=== PATIENT | male | born 1940 | race Caucasian/White ===

== ENCOUNTER 2017-12-16 09:20 | Outpatient (CLI) | payer MEDICARE ==
--- NOTE | 2017-12-16 09:53 | ULT ---
RENAL ULTRASOUND: INDICATIONS: Chronic renal disease. FINDINGS: The kidneys reveal no evidence of hydronephrosis or suspicious renal lesion. Symmetric sizes are doc umented with links between 10 and 11 cm, bilaterally. No significant abnormality of the imaged urina ry bladder. IMPRESSION: No overt hydronephrosis involving either kidney. POS: [facility]
== END 2017-12-16 09:21 | disposition home or self-care (01) ==
LOC: SCSULT 09:20
PROVIDERS: ATTEND Internal Medicine Nephrology
DX: N18.3 Chronic kidney disease, stage 3 (moderate) (principal)
CPT/HCPCS: 76770

== ENCOUNTER 2018-03-12 07:10 | Outpatient (CLI) | payer MEDICARE ==
--- NOTE | 2018-03-12 08:16 | CT ---
NONCONTAST CT ABDOMEN: DATE: 03/12/2018. HISTORY: Abdominal wall mass right flank region. Intraabdominal mass. COMPARISON: None available. FINDINGS: There is mild bibasilar atelectasis and/or scarring present. No discrete pulmonary nodule or mass is identified. Lack of intravenous contrast does limit sensitivity evaluation of the parenchymal organs. Calcified granulomata are seen in the spleen. Post cholecystectomy changes are noted. There is heterogeneity in the region of the superior pole right kidney worrisome for mass. This is d ifficult to accurately assess without IV contrast, and postcontrast CT abdomen is recommended. There is an area of slight increased echogenicity and heterogeneity which measures 3.7 cm. A 1.5 cm nodule is seen involving the right adrenal gland. This does not demonstrate an attenuation coefficient compatible with a lipid-rich adrenal adenoma. The liver, pancreas, and left adrenal gland demonstrate a grossly normal nonenhanced CT appearance. The appendix is partially visualized and normal I caliber. There is a small to moderate amount of re tained fecal material seen in the visualized colon. Vascular calcifications are present in the abdominal aorta and involving the iliac arteries. Degenerative changes are noted in the spine. No free fluid, fluid collection, or lymphadenopathy is seen in the abdomen. The pelvis is not imaged on this exam. IMPRESSION: 1. Heterogeneous and slight increased density mass-like area within the superior pole right kidney. This cannot be accurately assessed without IV contrast, and CT abdomen with IV contrast is recommend ed for further evaluation depending on patient's renal fuction. Renal cell carcinoma cannot be exclu ded. 2. Right adrenal nodule which cannot be characterized as a lipid-rich adenoma. CT abdomen following the adrenal mass protocol with and without IV contrast with washout imaging is recommended for furth er characterization. 3. Post cholecystectomy changes. 4. Small to moderate amount of retained fecal material in the colon suggesting constipation. CODE T POS: [facility]
== END 2018-03-12 07:11 | disposition home or self-care (01) ==
LOC: SCSCT 07:10
PROVIDERS: ATTEND Family Medicine
DX: R19.00 Intra-abdominal and pelvic swelling, mass and lump, unspecified site (principal); E27.9 Disorder of adrenal gland, unspecified; N28.89 Other specified disorders of kidney and ureter; K59.00 Constipation, unspecified; Z90.49 Acquired absence of other specified parts of digestive tract
CPT/HCPCS: 74150

== ENCOUNTER 2018-03-16 07:21 | Outpatient (CLI) | payer MEDICARE ==
--- NOTE | 2018-03-16 09:23 | CT ---
CT ABDOMEN AND PELVIS WITH AND WITHOUT CONTRAST: HISTORY: Right renal mass seen on prior CT. COMPARISON: 03/12/2018 TECHNIQUE: Multiple contiguous axial images were obtained in a CT of the abdomen and pelvis with and without IV contrast. Post contrast images were obtained in nephrographic and excretory phases. Contrast was ad ministered p.o. Coronal reformats were performed. FINDINGS: There is a solid enhancing mass at the posterior aspect of the right kidney, measuring 3.8 cm in size . The right renal vein is prominent, without an obvious filling defect. No left renal masses are se en. No calcifications are seen in either kidney. No hydronephrosis is seen. The gallbladder has been removed. The liver, left adrenal gland, and pancreas are unremarkable. Keith cifications in the spleen are from prior granulomatous disease. There is a small right adrenal nodul e, measuring 1.2 cm in greatest dimension, which is nonspecific, and too small to definitively charac terize. There are a few scattered diverticula in the colon. The prostate is enlarged. The small bowel is no rmal in appearance. The appendix is normal. Atherosclerotic calcifications are seen in the aorta. No abdominal or pelvic lymphadenopathy is seen . There is an expansile right rib lesion, measuring 3.5 cm in greatest dimension. Degenerative changes are seen in the spine, without other expansile or lytic osseous lesions. The visualized inferior th orax and abdominal wall soft tissues are unremarkable. IMPRESSION: 1. Right renal mass is suspicious for a renal cell carcinoma. 2. Expansile rib lesion is suspicious for metastatic disease to a right rib. 3. Right adrenal nodule is nonspecific. This is too small to definitely characterize and could repr esent either metastatic disease or an adrenal adenoma. 4. There is prominence of the right renal vein, without an obvious filling defect. POS: [facility]
[2018-03-16] MEDS ORDERED: Iopamidol 370 76% 100 ML VIAL ONE (10:01)
== END 2018-03-16 07:22 | disposition home or self-care (01) ==
LOC: CT 07:21
PROVIDERS: ATTEND Family Medicine
DX: N28.89 Other specified disorders of kidney and ureter (principal); E27.9 Disorder of adrenal gland, unspecified; M89.9 Disorder of bone, unspecified
CPT/HCPCS: 74178

== ENCOUNTER 2018-08-17 05:48 | Emergency (ER) | payer MEDICARE ==
[2018-08-17] MEDS ORDERED: Acetaminophen 500 MG TAB ONE (06:14)
[2018-08-17 06:46] LABS: #Eosinphils 0.3 thou/uL (0.0-0.7); #Lymphocytes 1.1 thou/uL (1.20-3.40); #Monocytes 1.1 thou/uL (0.11-0.59); #Neutrophils 9.2 thou/uL (1.40-6.50); %Basophils 0.2 % (0.0-1.0); %Eosinophils 2.4 % (0.0-10.0); %Lymphocytes 9.2 % (21.0-51.0); %Monocytes 9.1 % (0.0-10.0); %Neutrophils 79.2 % (42.0-75.0); Hemoglobin 13.3 g/dL (14.0-18.0); Mean Corpuscular HGB CONC 33.8 g/dL (32.0-36.0); Mean Corpuscular Hemoglobin 29.2 pg (27.0-31.0); Mean Corpuscular Volume 86.2 fL (78.0-98.0); Mean Platelet Volume 8.7 fL (7.4-10.4); Platelet Count 153 thou/uL (130-400); Red Blood Cell (RBC) Count 4.57 mill/uL (4.70-6.10); White Blood Cell (WBC) Count 11.6 thou/uL (4.8-10.8)
[2018-08-17 07:01] LABS: ALT (SGPT) 18 U/L (8-55); AST (SGOT) 15 U/L (5-34); Alkaline Phosphatase 77 U/L (40-150); Anion Gap 14 mmol/L (10-20); BUN (Urea Nitrogen) 15 mg/dL (8.4-25.7); Bilirubin, Total 0.6 mg/dL (0.2-1.2); Calc. Creatinine Clearance 0 mL/min (70-130); Calcium 9.5 mg/dL (7.8-10.44); Carbon Dioxide 26 mmol/L (23-31); Chloride 101 mmol/L (98-107); Estimated GFR-MDRD 43; Globulin 2.5 g/dL (2.4-3.5); Glucose 234 mg/dL (83-110); Potassium 3.9 mmol/L (3.5-5.1); Protein, Total 6.5 g/dL (5.8-8.1); Sodium 137 mmol/L (136-145)
[2018-08-17 07:20] LABS: CKMB 0.7 ng/mL (0-6.6)
[2018-08-17] MEDS ORDERED: Cefepime 2 GM VIAL ONE (07:59)
--- NOTE | 2018-08-17 08:16 | CT ---
CT BRAIN WITHOUT CONTRAST: INDICATIONS: History of altered mental status after fall. COMPARISON: MRI brain dated 12/13/2013. FINDINGS: The septum pellucidum and third ventricle are midline. No hydrocephalus is evident. No definite acu te infarct or intracranial hemorrhage is noted. The skull is intact. The mastoid air cells are ananya r. There is mild mucosal thickening in the ethmoid air cells. IMPRESSION: 1. No acute intracranial abnormality. 2. Mild paranasal sinus disease. POS: [facility]
--- NOTE | 2018-08-17 08:17 | RAD ---
CHEST ONE VIEW: INDICATIONS: History of adrenal insufficiency, fever, and cough. FINDINGS: There is mild cardiomegaly. The pulmonary vasculature is within normal limits. No consolidation or pleural effusion is evident. No definite acute osseous abnormality is evident. IMPRESSION: No definite acute cardiopulmonary abnormality. POS: [facility]
[2018-08-17 09:14] LABS: Bilirubin Negative (Negative); Blood, Urine Negative (Negative); Glucose, Urine (Dipstick) 250 mg/dL (Negative); Leukocyte Negative (Negative); Nitrite Negative (Negative); Protein, Urine (Dipstick) Negative (Neg-Trace); Urobilinogen 0.2 mg/dL (Less than 2)
[2018-08-17 09:18] LABS: Clarity Clear (Clear)
--- NOTE | 2018-08-21 12:13 | EKG ---
Test Reason : Blood Pressure : / mmHG Vent. Rate : 101 BPM Atrial Rate : 101 BPM P-R Int : 162 ms QRS Dur : 084 ms QT Int : 350 ms P-R-T Axes : 037 079 051 degrees QTc Int : 453 ms Sinus tachycardia Otherwise normal ECG Confirmed by PATRICIA DANIEL [id number]), writer editor MIRELLA NULL ([id number] on 08/21/2018 12:12:52 PM Referred By: Confirmed By:PATRICIA DANIEL
== END 2018-08-17 13:13 | disposition short-term general hospital (02) ==
LOC: ERS 05:48 → UNDOADMIN 07:16 → ERHOLD 07:16 → ERS 13:13
DX: R50.9 Fever, unspecified (principal); R00.0 Tachycardia, unspecified; E03.9 Hypothyroidism, unspecified; E11.9 Type 2 diabetes mellitus without complications; I10 Essential (primary) hypertension; F41.9 Anxiety disorder, unspecified; Z79.899 Other long term (current) drug therapy; Z79.84 Long term (current) use of oral hypoglycemic drugs; W18.30XA Fall on same level, unspecified, initial encounter
CPT/HCPCS: 36415; 70450; 71045; 80053; 81003; 82550; 82553; 83605; 84484; 85025; 87040; 87086; 87804; 93005; 94760; 96361; 96365; 96366; 96367; J0692; J3370

== ENCOUNTER 2019-07-22 10:33 | Outpatient (CLI) | payer MEDICARE ==
[~2019-07-22 10:33] MED LIST: Iopamidol 370 76% 100 ML VIAL ONE
--- NOTE | 2019-07-22 15:24 | CT ---
Exam: Chest CT with contrast Abdomen CT with contrast Pelvic CT with contrast HISTORY: Right renal cancer. Correlation: None COMPARISON: Chest abdomen and pelvic CT 03/25/2019 at [facility] [place], 03/16/2018 FINDINGS: Chest CT: Mediastinum: No mass, lymphadenopathy or hematoma. Aorta: Scattered atherosclerosis. No aneurysm, dissection or periaortic fat stranding Heart: Normal heart size. No significant pericardial fluid Trachea and central bronchi: Patent Pleural spaces: No pleural effusion. Right lung: Dependent atelectatic changes. No suspicious masses, nodules or consolidation. Left lung:Redemonstration of a spiculated nodule in the left upper lobe which appears be contiguous w ith the venous system and may represent focal thrombosis of a pulmonary vein, measuring 1.5 x 0.8 cm. Redemonstration of a bilobed nodule in the posterior aspect of the left upper lobe measuring 0.4 x 1.5 cm (previously measuring 0.5 x 1.4 cm). Redemonstration of a 0.4 cm nodule in the left lower lobe, unchanged. Redemonstration of a 0.5 x 0.6 cm solid nodule in the left lower lobe, previously me asuring 0.5 x 0.6 cm. No new or suspicious nodules, consolidation or masses in the left lung. Pneumothorax: None Abdomen CT: Gallbladder: Surgically absentPortal vein: Patent Liver: Appropriate enhancement. Spleen: Appropriate enhancement Pancreas: Appropriate enhancement Adrenal glands: Appropriate enhancement Lymphadenopathy: No gastrohepatic, retrocrural or periportal lymphadenopathy Kidneys: Irregular masslike opacity involving the upper pole of the right kidney is redemonstrated. T here does appear to be some volume loss in this region suggesting a component of treatment change. This mass measures 4.1 x 3.6 cm. There is asymmetric prominence of the right renal vein without filli ng defect. Extension of tumor into the right renal vein is suspected without associated thrombosis. Mesentery: No mass, lymphadenopathy, free air or free fluid Alimentary canal: No evidence of bowel obstruction. Ileocecal junction is normal. Normal caliber appe ndix. Scattered fecal material in a nondistended, nondilated colon. Pelvis CT: Mild enlarged prostate gland. Urinary bladder mucosal hypertrophy likely due to bladder obstruction f rom benign prostatic hypertrophy. Bladder diverticulum is suspected. Evaluation the urinary bladder mucosa is limited. No pelvic mass, lymphadenopathy, free air or free fluid Osseous structures:There is redemonstration of a osseous metastatic lesion involving the right 11th r ib. Additional osseous metastases is not appreciated. IMPRESSION: 1. Redemonstration of a right renal neoplasm. 2. Previously noted nodule in the right adrenal gland is less evident. 3. Prominence of the right renal vein persists. Possible extension of tumor is suspected without asso ciated thrombosis. 4. Redemonstration of metastases involving the right 11th rib. 5. Stable multiple left lung parenchymal nodules. Transcribed Date/Time: 07/22/2019 7:34 PM
== END 2019-07-22 10:34 | disposition home or self-care (01) ==
LOC: BICCT 10:33
PROVIDERS: ATTEND Internal Medicine Hematology & Oncology
DX: C64.1 Malignant neoplasm of right kidney, except renal pelvis (principal); R91.8 Other nonspecific abnormal finding of lung field; C79.51 Secondary malignant neoplasm of bone
CPT/HCPCS: 71260; 74177; Q9967

== ENCOUNTER 2019-09-30 12:24 | Outpatient (CLI) | payer MEDICARE ==
--- NOTE | 2019-09-30 13:22 | MMO ---
Bilateral MAMMO Bilat Diag [facility]. CLINICAL HISTORY: Patient is 79 years old and is seen for diagnostic exam and pain in the sub-areolar region of the left breast. The patient has no family history of breast cancer. The patient has a history of bone cancer in March,. VIEWS: The views performed were: bilateral craniocaudal with tomosynthesis; bilateral mediolateral oblique with tomosynthesis; and bilateral mediolateral with tomosynthesis. FILMS COMPARED: The present examination has been compared to a prior imaging study performed at [facility] on 09/30/2019. This study has been interpreted with the assistance of computer-aided detection. MAMMOGRAM FINDINGS: There are scattered fibroglandular densities. Finding 1: There are punctate calcifications seen in the sub-areolar region of the left breast. Finding 2: There is a focal asymmetry measuring 20 millimeters seen in the sub-areolar region of the left breast. There are no suspicious masses, suspicious calcifications, or new areas of architectural distortion. IMPRESSION: FINDING 1: CALCIFICATIONS IN THE LEFT BREAST ARE BENIGN. FINDING 2: FOCAL ASYMMETRY IN THE LEFT BREAST IS BENIGN. EVIDENCE FOR GYNECOMASTIA. THE RESULTS OF THIS EXAM WERE SENT TO THE PATIENT. ACR BI-RADS Category 2 - Benign finding MAMMOGRAPHY NOTE: 1. A negative mammogram report should not delay a biopsy if a dominant of clinically suspicious mass is present. 2. Approximately 10% to 15% of breast cancers are not detected by mammography. 3. Adenosis and dense breasts may obscure an underlying neoplasm. Reported by: CLAUDIA GONZALEZ MD Electonically Signed: [id number]
--- NOTE | 2019-09-30 13:59 | ULT ---
EXAM: LEFT BREAST ULTRASOUND: 09/30/19 HISTORY: Left breast pain behind the nipple. FINDINGS: there is some heterogeneous slightly hypoechoic changes in the subareolar aspect of the left breast h aving the appearance evident for typical gynecomastia which matches the findings seen on diagnostic m ammogram. No solid or cystic mass. IMPRESSION: Evidence for left sided minimal gynecomastia. If the patient develops any new palpable finding in either breast, follow-up diagnostic mammogram and breast ultrasound at that time is recommended. POS: [facility]
== END 2019-09-30 12:25 | disposition home or self-care (01) ==
LOC: BICULT 12:24
PROVIDERS: ATTEND Internal Medicine Hematology & Oncology
DX: C64.1 Malignant neoplasm of right kidney, except renal pelvis (principal); N64.59 Other signs and symptoms in breast; N62 Hypertrophy of breast; N64.89 Other specified disorders of breast; R92.1 Mammographic calcification found on diagnostic imaging of breast
CPT/HCPCS: 76642; 77066; G0279; 77063; 77067

== ENCOUNTER 2019-11-29 08:39 | Outpatient (CLI) | payer MEDICARE ==
--- NOTE | 2019-11-29 13:25 | CT ---
CT CHEST AND ABDOMEN AND PELVIS WITH CONTRAST: INDICATION: Malignant neoplasm of right kidney. COMPARISON: Comparison is made to CT chest, abdomen, and pelvis 07/22/2019. FINDINGS: CT CHEST: The nodular mass in the left upper lobe which has been previously described is again seen and appears to have enlarged in size. In the coronal plane today, the maximal dimensions are measured at 2.0 cm with previous similar dimension at 1.2 cm. AP dimension today in the axial plane is 2.4 cm with loy or measure 2.0 cm. The Bilobed nodule in the posterior aspect of the left upper lobe, previously described, appears stab le (image 39 axial). There are two 5 mm nodules seen in the posterior left upper lobe both seen on axial image 44. Both o f these appear slightly larger measuring in the 3-4 mm previously. The nodule in the more posterior left lower lobe seen on axial image 56 has also slightly increased i n size measuring approximately 9 mm AP dimension today with prime measurement of approximately 6 mm. The right lung shows tiny peripheral nodules in the right upper lobe peripherally measuring in the 3- 4 mm range which appear stable. There is now a 6 mm nodule in the more medial right upper lobe seen on axial 33 which has enlarged since the prior study. It previously measured in the 3-4 mm range. Th ere is another 4 mm nodule anterior right mid lung probably right middle lobe seen on axial 47 which was not definitely noted on the prior study. Some pleural-based stranding in the lung bases appear s table. Mediastinum is unremarkable with no evidence of adenopathy. The lytic expansile lesion seen involving the lateral right 10th rib is again noted. This was previo usly described as 11th rib. Vertebral bodies maintain height and alignment. IMPRESSION: 1. Enlarging pulmonary nodules bilaterally when compared to prior exam as detailed above. 2. Right 10th rib lesion again noted without significant change. CT ABDOMEN AND PELVIS: Liver, spleen, and pancreas unremarkable and unchanged. Stomach unremarkable. Post cholecystectomy change. The left adrenal nodule is again seen. This was not well demonstrated on the prior study but is well seen today measuring 1.6 cm. The mass density involving the superior right kidney is again noted. It does not show significant in terval change in size or appearance. Prominence of the right renal vein does not appear significantly changed. Left kidney unremarkable. No adenopathy. Bowel loops unremarkable and unchanged. Aorta shows atherosclerotic calcification without aneurysm. No free fluid. The urinary bladder shows mild bladder wall thickening. There is prostatic hypertro phy. The osseous structures are unremarkable. Lumbar vertebrae maintain height and alignment with d egenerative changes noted. IMPRESSION: 1. Stable-appearing right renal mass. 2. Left adrenal nodule. 3. Urinary bladder wall thickening with prostatic hypertrophy. POS: [facility]
== END 2019-11-29 08:40 | disposition home or self-care (01) ==
LOC: SCSCT 08:39
PROVIDERS: ATTEND Internal Medicine Hematology & Oncology
DX: C64.1 Malignant neoplasm of right kidney, except renal pelvis (principal); R91.8 Other nonspecific abnormal finding of lung field; M89.9 Disorder of bone, unspecified; N28.89 Other specified disorders of kidney and ureter; N32.81 Overactive bladder; E27.8 Other specified disorders of adrenal gland
CPT/HCPCS: 71260; 74177

== ENCOUNTER 2020-01-26 12:39 | Outpatient (CLI) | payer MEDICARE ==
[2020-01-26 15:19] LABS: Hemoglobin 13.1 g/dL (14.0-18.0); Mean Corpuscular HGB CONC 33.9 G/DL (32.0-36.0); Mean Corpuscular Hemoglobin 29.6 PG (27.0-33.0); Mean Corpuscular Volume 87.1 fl (80.0-100.0); Mean Platelet Volume 10.4 fl (7.4-10.4); Platelet Count 181 10x3/uL (130-400); RBC Distribution Width 12.7 % (11.5-14.5); Red Blood Cell (RBC) Count 4.43 10x6/uL (4.40-5.80); White Blood Cell (WBC) Count 5.8 10x3/uL (4.5-11.0)
[2020-01-26 15:23] LABS: Anion Gap 13 mmol/L (10-20); BUN (Urea Nitrogen) 14 mg/dL (8.4-25.7); Calc. Creatinine Clearance 0 mL/min (70-130); Calcium 9.3 mg/dL (7.8-10.44); Carbon Dioxide 27 mmol/L (23-31); Chloride 102 mmol/L (98-107); Glucose 332 mg/dL (83-110); Potassium 4.6 mmol/L (3.5-5.1); Sodium 137 mmol/L (136-145)
[2020-01-26 15:57] LABS: Prothrombin Time 10.8 sec (9.5-12.1)
[2020-01-27 02:04] LABS: SARS-CoV-2 MS2 Positive; SARS-CoV-2 N Gene Negative; SARS-CoV-2 S Gene Negative; SARS-CoV-2 by NAA Not Detected (NotDetected); SARS-CoV-2 orf1ab Negative
== END 2020-01-26 12:40 | disposition home or self-care (01) ==
LOC: LABBT 12:39
PROVIDERS: ATTEND Orthopaedic Surgery
DX: Z01.818 Encounter for other preprocedural examination (principal); Z20.828 Contact with and (suspected) exposure to other viral communicable diseases; C64.9 Malignant neoplasm of unspecified kidney, except renal pelvis; C79.51 Secondary malignant neoplasm of bone
CPT/HCPCS: 80048; 85027; 85610; 93005; U0003; 87635; 93010

== ENCOUNTER 2020-01-30 10:23 | Inpatient (IN) | payer MEDICARE ==
[2020-01-27 13:56] VITALS: BMI 33.3
[~2020-01-30 10:23] MED LIST changes: +Bupivacaine HCl 0.5%/Epinephrine 1:200,000/PF 30 ml Vial ONE; -Iopamidol 370 76% 100 ML VIAL ONE; +Lidocaine 1% PF 5 ML VIAL ONE; +Ondansetron PF 4 MG/2 ML Vial ONE; +PROPOFOL 200 MG/20 ML VIAL ONE; +ePHEDrine 50 MG/ML VIAL ONE
[2020-01-30] MEDS ORDERED: Clindamycin/D5W 900 mg/50 ml Premix Bag ONE (10:35)
[2020-01-30] MEDS ORDERED: Levofloxacin 500 mg/D5W 100 ml Premix Bag ONE (10:35)
[2020-01-30] MEDS ORDERED: Fentanyl 100 MCG/2 ML VIAL ONE ×3 (11:26→13:22)
[2020-01-30] MEDS ORDERED: Midazolam HCl 2 mg/2 ml Vial ONE (11:26)
[2020-01-30] MEDS ORDERED: Phenylephrine 10 MG/ML VIAL ONE (12:22)
[2020-01-30] MEDS ORDERED: Promethazine HCl 25 MG/ML VIAL IM PRN (12:35)
[2020-01-30] MEDS ORDERED: PACU-Morphine 4MG/ML VIAL SLOW IVP PRN (12:35)
[2020-01-30] MEDS ORDERED: Promethazine HCl 25 MG/ML VIAL SLOW IVP PRN (12:35)
--- NOTE | 2020-01-30 14:03 | RAD ---
Exam: XR Femur Lt 2 View STANDARD HISTORY: Left femur intramedullary nail COMPARISON: Views left femur ON 01/26/2020 FINDINGS/IMPRESSION: 4 intraoperative fluoroscopic images left femur are submitted for interpretation. Mid diaphysis of th e femur is not imaged on this exam. There are postoperative changes related to antegrade intramedullary janene with dynamic compression screw proximally and distal interlocking screw distally. This does transfix the lytic lesion involving the proximal femoral diaphysis in a subtrochanteric region. No hardware complication is seen. Fluoroscopy: Time-70 seconds Dose-19.93 mGy
[2020-01-30] MEDS ORDERED: Ondansetron ODT 4 MG TAB PO PRN (14:04)
[2020-01-30] MEDS ORDERED: Calcium Carbonate 500 MG ChewTAB PO PRN (14:04)
[2020-01-30] MEDS ORDERED: Ondansetron PF 4 MG/2 ML Vial IVP PRN (14:04)
[2020-01-30] MEDS ORDERED: HYDROcodone/Acetaminophen 5/325 mg Tablet PO PRN (14:04)
[2020-01-30] MEDS ORDERED: Senokot S 8.6-50 MG TAB PO PRN (14:04)
[2020-01-30] MEDS ORDERED: Non-Formulary Item 1 EACH (Insulin Glargine,Hum.Rec.Anlog [Lantus Solostar] 100 UNIT/ML P SC PRN (14:13)
[2020-01-30] MEDS ORDERED: ACETAMINOPHEN PO PRN (14:13)
[2020-01-30] MEDS ORDERED: OXYCODONE PO PRN (14:13)
[2020-01-30] MEDS ORDERED: Clindamycin/D5W 900 MG in Premix Bag 1 BAG IVPB SCH (18:00)
[2020-01-30] MEDS: glipiZIDE 10 MG TAB PO SCH (18:40)
[2020-01-30] MEDS ORDERED: Hydrocortisone 10 mg Tablet PO SCH (19:00)
[2020-01-30] MEDS ORDERED: Acetaminophen 325 MG TAB PO PRN (19:09)
--- NOTE | 2020-01-30 19:42 | PDOC.HHP ---
Hospitalist HPI - History of Present Illness consult for medical management History of Present Illness: This is an 79-year-old male patient with a history of diabetes mellitus, hypertension and metastatic renal cancer who was brought in today for left femur surgery with ORIF secondary to metastatic bone lesions. His oncologist is Dr. Henley Postop he was brought up to the floor and was noted to be having episodes of tachycardia and increasing fever up to 102. Hospitalist team was consulted for medical management. On coming up onto the floor his noted that he was a bit more lethargic and at times confused and corroborated that. At the time of my assessment his gives most of the story. He was fully oriented to self at the time. There was no report reported chest pain cough shortness of breath abdominal pain or dysuria. His notes that he has a history of adrenal insufficiency for which he takes oral hydrocortisone and may need increased doses during times of stress. Prior to surgery 3 days ago patient's CBC Showed WBC of 5.8, hemoglobin 13.1 and platelets 181, he had a stable CKD with creatinine 1.68. No new labs were drawn today prior to surgery. His hemoglobin A1c was 9.7. . Hospitalist ROS - Review of Systems Constitutional: reports: fever, malaise. denies: chills, sweats, weakness Respiratory: denies: cough, shortness of breath, hemoptysis, SOB with excertion Gastrointestinal: denies: nausea, vomiting, abdominal pain, diarrhea Musculoskeletal: denies: neck pain, shoulder pain Neurological: reports: confusion. denies: weakness, incoordination All other systems reviewed; all pertinent +/- noted in HPI/Subj - Medication Medications: Active Medications Generic Name Dose Route Start Last Admin Trade Name Freq PRN Reason Stop Dose Admin Glipizide 10 mg 01/30/20 17:00 01/30/20 18:40 Glipizide 10 Mg Tab PO 10 mg BID-WM HAKAN Administration Hydrocortisone 20 mg 01/30/20 19:00 01/30/20 18:41 Hydrocortisone 10 Mg Tablet PO 01/30/20 21:15 20 mg NOW HAKAN Administration Clindamycin Phosphate/Dextrose 50 mls @ 100 mls/hr 01/30/20 18:00 01/30/20 18:29 900 mg/ Device IVPB 01/31/20 00:28 50 mls Q6HR HAKAN Administration Allergies: Penicillin Hospitalist History - Past Medical History Renal/: reports: Chronic renal failure Endocrine: reports: Diabetes Other Medical History: renal cancer, rotator cuff tear and repair, hypothyroidism, hypertension - Past Surgical History Other Surgical History: rotator cuff repair, right knee replacement, galbladder, left total knee replaement, left shoulder from fractured metastatic disease - Family History Other Family History: lung cancer, colon cancer, - Social History Smoking Status: Former smoker Living Situation: With Family Activity level: uses cane/walker - Exam General Appearance: ill appearing General - other findings: Awake but oriented only to self ENT: normocephalic atraumatic, no oropharyngeal lesions, moist mucosa Neck: supple, symmetric, no JVD, no thyromegaly Heart: RRR, no murmur, no gallops, no rubs, normal peripheral pulses Respiratory: CTAB, no wheezes, no rales, no ronchi Gastrointestinal: soft, non-tender, non-distended, normal bowel sounds Extremities: no cyanosis, no edema Neurological: cranial nerve grossly intact, no focal deficits Psychiatric: oriented to person Hospitalist Results - Labs Result Diagrams: 01/30/20 21:34 Hospitalist H&P A/P - Plan Plan: This is an 79-year-old male patient with a history of diabetes mellitus, renal i nsufficiency and metastatic renal cancer who is status post ORIF of left femur on account of metastatic bone disease. He is having altered mental status with fevers concerning for postop sepsis Severe sepsis Has altered mental status, tachycardia and fevers Unclear source at the momentwe will check chest x-ray, blood cultures, lactate and UA We will start following/meropenem for now given his penicillin allergy. Give a bolus of 1 L normal saline and monitor blood pressures. Is unclear what his cardiac status iswe will reevaluate a repeat bolus as needed. We will discontinue clindamycin which she is currently on. Follow-up blood cultures De-escalate antibiotics as needed. Postop fever Possible sepsis as above Given his history of surgery and malignancy could be DVT Ultrasound legs bilaterally. CKD Follow-up on BMP Diabetes mellitus Start correctional insulin Monitor glucose Status post ORIF Appreciate surgery input. Adrenal insufficiency We will start stress dose hydrocortisone 50 mg every 6 Monitor VT prophylaxisHeparin CODE STATUS full code
--- NOTE | 2020-01-30 20:38 | RAD ---
EXAM: Single view of the chest HISTORY: Postoperative fever COMPARISON: 08/17/2018 FINDINGS: Single view of the chest shows an enlarged cardiomediastinal silhouette. There is bilatera l pulmonary vascular enlargement. Increased interstitial lung markings are present. Airspace opacity is seen in the lung bases which may represent atelectasis or infiltrates. Degenerative change s are seen in the spine. IMPRESSION: 1. Cardiomegaly with pulmonary vascular congestion 2. Bibasilar atelectasis versus infiltrates
[2020-01-30] MEDS ORDERED: Sodium Chloride 0.9% 1,000 ML IV SCH ×2 (20:45→23:45)
[2020-01-30] MEDS ORDERED: Atorvastatin Calcium 20 MG TAB PO SCH (21:00)
[2020-01-30] MEDS ORDERED: Famotidine/PF 20 mg/2ml Vial SLOW IVP SCH (21:00)
[2020-01-30] MEDS ORDERED: Simvastatin 5 MG TAB PO SCH (21:00)
[2020-01-30] MEDS ORDERED: traZODone HCl 50 MG TAB PO SCH (21:00)
[2020-01-30] MEDS ORDERED: Gabapentin 300 MG CAP PO SCH (21:00)
[2020-01-30] MEDS ORDERED: Famotidine 20 MG TAB PO SCH (21:00)
[2020-01-30] MEDS: Hydrocortisone 10 mg Tablet PO SCH (22:00)
[2020-01-30] MEDS: Hydrocortisone Sod Succ/PF 100 mg/2 ml Vial IVP SCH (22:00)
[2020-01-30 22:07] LABS: ALT (SGPT) 20 U/L (8-55); AST (SGOT) 23 U/L (5-34); Albumin 3.4 g/dL (3.4-4.8); Alkaline Phosphatase 71 U/L (40-110); Anion Gap 13 mmol/L (10-20); BUN (Urea Nitrogen) 15 mg/dL (8.4-25.7); Bilirubin, Total 0.8 mg/dL (0.2-1.2); Calc. Creatinine Clearance 45 mL/min (70-130); Carbon Dioxide 24 mmol/L (23-31); Chloride 105 mmol/L (98-107); Globulin 2.6 g/dL (2.4-3.5); Glucose 190 mg/dL (83-110); Potassium 3.7 mmol/L (3.5-5.1); Sodium 138 mmol/L (136-145)
[2020-01-30] MEDS: MEROPENEM 1 GM/50 ML 1 GM in Premix Bag 1 BAG IVPB SCH (22:18)
[2020-01-30] MEDS ORDERED: Dextrose 50% Abboject 50 ML SYRINGE SLOW IVP PRN (22:59)
[2020-01-30] MEDS ORDERED: Dextrose 5% in Water 1,000 ML IV PRN (22:59)
[2020-01-30] MEDS ORDERED: HumaLOG 300 UNITS/3 ML VIAL SC PRN (22:59)
--- NOTE | 2020-01-30 23:36 | ULT ---
EXAM: Bilateral lower extremity venous ultrasound HISTORY: Bilateral lower extremity pain and edema; postoperative fever COMPARISON: None TECHNIQUE: Multiplanar grayscale and color Doppler images were obtained in a bilateral lower extremit y venous ultrasound. Spectral analysis of the Doppler waveforms were performed. FINDINGS: The bilateral common femoral vein, profunda femoral veins, superficial femoral veins, and p opliteal veins are normal in appearance without visible thrombus. These vessels demonstrate normal compression, flow, and augmentation. The bilateral posterior tibial veins and greater saphenous veins are patent without evidence of throm bus. IMPRESSION: No evidence of DVT.
[2020-01-31] MEDS: Hydrocortisone Sod Succ/PF 100 mg/2 ml Vial IVP SCH ×3 (02:48→14:42)
[2020-01-31 05:21] LABS: #Eosinphils 0.1 thou/uL (0.0-0.7); #Lymphocytes 0.7 thou/uL (1.20-3.40); #Monocytes 0.6 thou/uL (0.11-0.59); #Neutrophils 9.3 thou/uL (1.40-6.50); %Basophils 0.2 % (0.0-1.0); %Lymphocytes 6.6 % (21.0-51.0); %Monocytes 5.7 % (0.0-10.0); %Neutrophils 86.4 % (42.0-75.0); Hemoglobin 12.3 g/dL (14.0-18.0); Mean Corpuscular HGB CONC 34.1 g/dL (32.0-36.0); Mean Corpuscular Hemoglobin 30.3 pg (27.0-31.0); Mean Corpuscular Volume 88.7 fL (78.0-98.0); Mean Platelet Volume 8.5 fL (7.4-10.4); Platelet Count 132 thou/uL (130-400); RBC Distribution Width 11.9 % (11.5-14.5); Red Blood Cell (RBC) Count 4.05 mill/uL (4.70-6.10); White Blood Cell (WBC) Count 10.8 thou/uL (4.8-10.8)
[2020-01-31] MEDS: MEROPENEM 1 GM/50 ML 1 GM in Premix Bag 1 BAG IVPB SCH ×2 (06:00→14:41)
[2020-01-31 06:51] LABS: Bacteria/HPF None Seen HPF (None Seen); Bilirubin Negative (Negative); Blood, Urine Negative (Negative); Clarity Clear (Clear); Glucose, Urine (Dipstick) 200 mg/dL (Negative); Ketone, Urine Trace mg/dL (Negative); Leukocyte Negative Leu/uL (Negative); Nitrite Negative (Negative); Protein, Urine (Dipstick) 20 mg/dL (Neg-Trace); RBC/HPF 0-3 HPF (0-3); Squamous Epithelial 0-3 HPF (0-3); Urobilinogen Normal mg/dL (Less than 2); WBC/HPF 0-3 HPF (0-3); pH, Urine 5.5 (5.0-9.0)
[2020-01-31 07:08] LABS: Sperm/HPF Rare HPF (None Seen)
[2020-01-31 07:10] LABS: Urine Culture Reflex No No
[2020-01-31] MEDS ORDERED: Hydrocortisone 10 mg Tablet PO SCH ×2 (09:00→15:00)
[2020-01-31] MEDS ORDERED: Levothyroxine Sodium 125 MCG TAB PO SCH (09:00)
[2020-01-31] MEDS ORDERED: Amlodipine 10 MG TAB PO SCH (09:00)
[2020-01-31] MEDS ORDERED: Escitalopram Oxalate 10 mg Tablet PO SCH (09:00)
[2020-01-31] MEDS: Heparin 5,000 UNITS/ML VIAL SC SCH ×2 (09:07→14:42)
[2020-01-31] MEDS: glipiZIDE 10 MG TAB PO SCH (09:09)
[2020-01-31] MEDS: Hydrocortisone 10 mg Tablet PO SCH (09:10)
[2020-01-31] MEDS: HYDROcodone/Acetaminophen 5/325 mg Tablet PO PRN ×2 (09:20→15:56)
--- NOTE | 2020-01-31 09:32 | PDOC.HOSPP ---
- Subjective Encounter Date: 01/31/20 Encounter Time: 09:30 Subjective: Mr. Finnegan was seen today in follow-up of post op. He is feeling much better. His says she feels he is back to his baseline. - Objective Vital Signs & Weight: Vital Signs (12 hours) Temp Pulse Resp BP Pulse Ox 01/31/20 07:35 98.2 F 83 16 137/57 L 97 01/31/20 04:36 98.1 F 72 18 118/65 95 01/31/20 00:07 99.4 F 89 18 131/63 95 Weight Weight 200 lb I&O: 01/30/20 01/31/20 02/01/20 06:59 06:59 06:59 Intake Total 2080 Output Total 600 Balance 1480 Result Diagrams: 01/31/20 04:59 01/30/20 21:34 Additional Labs: Accuchecks 01/31/20 01/30/20 01/30/20 05:49 20:51 16:47 POC Glucose 257 H 179 H 199 H 01/30/20 11:19 POC Glucose 145 H Hospitalist ROS - Medication Medications: Active Medications Generic Name Dose Route Start Last Admin Trade Name Freq PRN Reason Stop Dose Admin Acetaminophen 650 mg 01/30/20 19:09 01/30/20 20:00 Acetaminophen 325 Mg Tab PO 650 mg Q4H PRN Administration Headache/Fever or Pain Atorvastatin Calcium 20 mg 01/30/20 21:00 01/30/20 22:00 Atorvastatin Calcium 20 Mg Tab PO 20 mg HS HAKAN Administration Famotidine 20 mg 01/30/20 21:00 01/30/20 22:00 Famotidine 20 Mg Tab PO 20 mg 2100 HAKAN Administration Famotidine 20 mg 01/30/20 21:00 01/30/20 22:00 Famotidine/Pf 20 Mg/2ml Vial SLOW IVP Not Given 2100 HAKAN Gabapentin 300 mg 01/30/20 21:00 01/30/20 22:00 Gabapentin 300 Mg Cap PO 300 mg HS HAKAN Administration Glipizide 10 mg 01/30/20 17:00 01/30/20 18:40 Glipizide 10 Mg Tab PO 10 mg BID-WM HAKAN Administration Hydrocortisone 10 mg 01/30/20 21:00 01/30/20 22:00 Hydrocortisone 10 Mg Tablet PO 10 mg BID HAKAN Administration Hydrocortisone Sodium Succinate 50 mg 01/30/20 21:00 01/31/20 02:48 Hydrocortisone Sod Succ/Pf 100 Mg/2 Ml Vial IVP 50 mg 0300,0900,1500,2100 HAKAN Administration Meropenem 1 gm/ Device 50 mls @ 100 mls/hr 01/30/20 22:00 01/31/20 06:00 IVPB 50 mls Q8HR HAKAN Administration Insulin Human Lispro 0 units 01/30/20 22:59 01/31/20 06:08 Humalog 300 Units/3 Ml Vial SC 4 unit .MILD SLIDING SCALE PRN Administration Mild Correctional Scale Simvastatin 10 mg 01/30/20 21:00 01/30/20 22:00 Simvastatin 5 Mg Tab PO 10 mg HS HAKAN Administration Trazodone HCl 50 mg 01/30/20 21:00 01/30/20 22:00 Trazodone Hcl 50 Mg Tab PO 50 mg HS HAKAN Administration - Exam Eye: PERRL, anicteric sclera Heart: RRR, no murmur, no gallops, no rubs, normal peripheral pulses Respiratory: no wheezes, no ronchi, rales (+ soft crackles at the bases) Gastrointestinal: soft, non-tender, non-distended, normal bowel sounds, no palpable masses Extremities: no cyanosis, 1+ LE edema Hosp A/P (1) Sepsis syndrome Code(s): VUR2706 - Status: Acute (2) Adrenal insufficiency Code(s): E27.40 - UNSPECIFIED ADRENOCORTICAL INSUFFICIENCY Status: Chronic (3) Chronic kidney disease, stage 3 Code(s): N18.30 - CHRONIC KIDNEY DISEASE, STAGE 3 UNSPECIFIED Status: Chronic (4) Hypertension Code(s): I10 - ESSENTIAL (PRIMARY) HYPERTENSION Status: Chronic (5) Diabetes mellitus type 2 in nonobese Code(s): E11.9 - TYPE 2 DIABETES MELLITUS WITHOUT COMPLICATIONS Status: Acute - Plan * Sepsis Syndrome- He appears to be back to baseline. His says he will re act in this manner,due to his adrenal insufficiency, and the stress of surgery. Will continue Hydrocortisone. Follow-up of culture results. Can likely discontinue Clindamycin today, and if cultures are negative tomorrw, continue to de-escalate or even discontinue antibiotics * HTN- blood pressure is stable * DM-blood glucose is also stable- continue SSI and glypizide * Hypothyroidism- clinically euthyroid * CKD- stage 3- stable * Pathologic Hip fracture- post-op management as per Orthopedics
[2020-01-31 16:20] VITALS: BP 123/65; TEMP 97.8
--- NOTE | 2020-01-31 17:37 | OP ---
DATE OF PROCEDURE: 01/30/2020 PREOPERATIVE DIAGNOSIS: Left proximal femur metastatic lesion with impending fracture. POSTOPERATIVE DIAGNOSIS: Left proximal femur metastatic lesion with impending fracture. SURGICAL PROCEDURE: TFNA (long), left femur. ANESTHESIA: General. DIRECTOR OF RECRUITMENT AND ADMISSIONS: Griffin. IMPLANTS: Synthes TFNA measuring 12y686 mm with an 85 mm hip screw and single distal cross-lock screw. COMPLICATIONS: None. DRAINS: None. SPECIMEN: Bone x2 for pathology. OUTCOME: Satisfactory. INDICATIONS FOR PROCEDURE: The patient is an 79-year-old gentleman with a history of known renal cell cancer, who now presents with a lytic lesion in the proximal femoral metaphysis just below the level of the lesser trochanter. This femur is now becoming increasingly painful and CT scan does show a large lytic lesion in the intramedullary canal with thinning and scalloping of the cortex, placing the patient at risk for pathologic fracture. Given the pain the patient is experiencing, we are now going to proceed with prophylactic nailing and stabilization of this femur. Informed consent has been obtained. I believe all questions have been answered. DESCRIPTION OF PROCEDURE: The patient was brought to the operating room and a time-out performed followed by induction of general anesthesia. Next, the patient was positioned supine on the fracture table with the involved left lower extremity held in longitudinal traction and the right leg held in extension at the hip to allow for AP and lateral C-arm imaging of the left hip. Next, a sterile prep and drape was performed to the left lateral thigh. A small incision was made proximal to the tip of the greater trochanter. After skin was sharply incised, dissection was carried down bluntly, such that the tip of the greater trochanter could be palpated. Next, a threaded guidewire was passed from the tip of the greater trochanter down into the proximal intramedullary canal of the femur. An opening reamer was then passed over this guidewire and reamings from the proximal most portion of the femur above the level of the metastatic lesion were sent for pathology. This was then followed by passage of a ball-tipped guidewire down the shaft of the femur and then a 12 mm reamer was passed over this ball-tipped guidewire, the 12 mm reamer was taken down to the level of the lytic lesion and then backed out of the femur with these reamings also sent to Pathology for inspection. This was then followed by passage of the reamer down the canal to make sure that an 11 mm nail would pass fully. Next, the nail was passed over the ball-tipped guidewire to an appropriate depth to allow for hip screw insertion. A second incision was made distal to the first and the jig was used to drive a threaded guidewire through the lateral cortex of the femur up the femoral neck into the femoral head. Once appropriately positioned, this was followed by measurement off the guidewire and then the step reamer passed over the guidewire, further preparing the femoral neck and head to accept the hip screw. The hip screw was then inserted under fluoroscopic guidance to an appropriate depth. This was then locked in place statically. Next, a single distal cross-lock screw was placed with freehand technique from lateral to medial through the nail. At the completion of this, AP and lateral images of the distal nail and proximal nail were obtained and saved. Next, the jig was removed from the proximal nail, and the proximal incision was irrigated with bulb syringe and then closed in layers with 0 Vicryl followed by 2-0 Vicryl and sarah. The other two small incisions were closed with a simple staple closure. A Xeroform gauze and tape dressing were then applied to the lateral thigh, and the patient was transferred to recovery room in stable condition. There were no complications. He tolerated the procedure well. Job ID: [id number] [facility] MEDICAL CENTERAlexis
[2020-01-31] MEDS ORDERED: Vancomycin 1 GM in Premix Bag 1 BAG IVPB SCH (21:00)
[2020-01-31] MEDS ORDERED: Aspirin 81 mg Enteric Coated Tablet PO SCH (21:00)
[2020-02-01] MEDS ORDERED: Levothyroxine Sodium 125 MCG TAB PO SCH (06:00)
--- NOTE | 2020-02-01 11:26 | PQF ---
CLINICAL DOCUMENTATION CLARIFICATION FORM: Dear Dr. Alatorre Date: 02/01/2020 Please exercise your independent, professional judgment in responding to the clarification form. Clinical indicators are provided on the bottom of this form for your review. Please check appropriate box(s): [ ] Sepsis is a complication of current surgery [ ] Sepsis not related to current surgery, due to (please specify): [ X ] No Sepsis [ ] Other diagnosis __Adrenal crisis [ ] Unable to determine In addition, please specify: Present on Admission (POA): [ X] Yes [ ] No [ ] Unable to determine For continuity of documentation, please document condition throughout progress notes and discharge summary. Thank You. CLINICAL INDICATORS - SIGNS / SYMPTOMS / LABS / RESULTS AND LOCATION IN EMR *H&P 01/29 ([facility]): * Postop episodes of tachycardia and increasing fever up to 102. * . Noted that he was bit more lethargic and at times confused and corroborated that. * History of adrenal insufficiency for which he takes oral hydrocortisone and may need increased doses during times of stress. * Prior to surgery 3 days ago patients CBC showed WBC of 5.8 No new labs were drawn today prior to surgery. * Altered mental status with fevers concerning for postop sepsis. * Severe Sepsis *LAB ([facility]): WBC Neutrophils % Lactic Acid 01/29 1.4 01/30 10.8 86.4 *PN 01/30 ([facility]): Sepsis Syndrome- He appears to be back to baseline. His says he will react in this manner, due to his adrenal insufficiency, and the stress of surgery. *Microbiology 01/29 ([facility]): Blood Culture Preliminary ... No growth to date RISK FACTORS / RESULTS AND LOCATION IN EMR *H&P 01/29 ([facility]): * 79-year-old * Brought in today for left femur surgery with ORIF * History of adrenal insufficiency for which he takes oral hydrocortisone and may need increased doses during times of stress. TREATMENTS / RESULTS AND LOCATION IN EMR *H&P 01/29 ([facility]): Check chest x-ray, blood cultures, lactate and UA Give a bolus of 1 L NS and monitor blood pressure De-escalate antibiotics as needed. *PN 01/30 ([facility]): Will continue Hydrocortisone. Follow-up of culture results. Thank you, Beatriz CDS/[employer] Operator Signature: Beatriz Pollard RN, CDS Phone #: [phone] [email or web address] This is a permanent part of the Medical Record MTDD
== END 2020-01-31 16:36 | disposition home or self-care (01) | DRG 481 ==
LOC: SDC 10:23 → SJJU 14:18 → OBSVTOIN 14:18
PROVIDERS: ADMIT Orthopaedic Surgery; ATTEND Internal Medicine
PROC: 0QH736Z Insertion of Intramedullary Internal Fixation Device into Left Upper Femur, Percutaneous Approach (ICD-10-PCS; principal; 2020-01-30)
DX: C79.51 Secondary malignant neoplasm of bone (principal); C79.00 Secondary malignant neoplasm of unspecified kidney and renal pelvis; C64.9 Malignant neoplasm of unspecified kidney, except renal pelvis; E27.40 Unspecified adrenocortical insufficiency; M84.552A Pathological fracture in neoplastic disease, left femur, initial encounter for fracture; E27.2 Addisonian crisis; Z20.828 Contact with and (suspected) exposure to other viral communicable diseases; E11.22 Type 2 diabetes mellitus with diabetic chronic kidney disease; I12.9 Hypertensive chronic kidney disease with stage 1 through stage 4 chronic kidney disease, or unspecified chronic kidney disease; E03.9 Hypothyroidism, unspecified; N18.30 Chronic kidney disease, stage 3 unspecified; M17.0 Bilateral primary osteoarthritis of knee; Z96.651 Presence of right artificial knee joint; Z87.891 Personal history of nicotine dependence; Z88.0 Allergy status to penicillin
CPT/HCPCS: 36415; 36416; 71045; 76000; 80053; 81001; 83605; 85025; 87040; 88305; 93970; C1713; J1644; J1720; J1956; J2185; J2250; J2370; J2405; J2704; J3010; J3370; J3490; J7030

== ENCOUNTER 2020-03-22 11:36 | Observation (INO) | payer MEDICARE ==
[2020-03-22] MEDS ORDERED: Ondansetron PF 4 MG/2 ML Vial ONE (11:58)
[2020-03-22] MEDS ORDERED: Morphine 4 MG/ML VIAL ONE ×2 (11:58→16:04)
[2020-03-22 12:02] LABS: #Eosinphils 0.4 thou/uL (0.0-0.7); #Lymphocytes 1.1 thou/uL (1.20-3.40); #Monocytes 0.7 thou/uL (0.11-0.59); #Neutrophils 6.5 thou/uL (1.40-6.50); %Basophils 0.3 % (0.0-1.0); %Eosinophils 4.4 % (0.0-10.0); %Lymphocytes 12.4 % (21.0-51.0); %Monocytes 7.8 % (0.0-10.0); %Neutrophils 75.2 % (42.0-75.0); Hemoglobin 14.8 g/dL (14.0-18.0); Mean Corpuscular HGB CONC 34.8 g/dL (32.0-36.0); Mean Corpuscular Hemoglobin 30.5 pg (27.0-31.0); Mean Corpuscular Volume 87.5 fL (78.0-98.0); Mean Platelet Volume 7.8 fL (7.4-10.4); Platelet Count 129 thou/uL (130-400); RBC Distribution Width 12.5 % (11.5-14.5); Red Blood Cell (RBC) Count 4.84 mill/uL (4.70-6.10); White Blood Cell (WBC) Count 8.6 thou/uL (4.8-10.8)
--- NOTE | 2020-03-22 12:14 | ULT ---
Venous duplex sonogram left lower extremity HISTORY: Left leg pain and edema. FINDINGS: The left common femoral vein and greater saphenous junction were evaluated along with the f emoral, deep femoral, popliteal, and posterior tibial veins. Color and spectral Doppler flow, compression, and augmentation. IMPRESSION : Normal exam.
[2020-03-22 12:31] LABS: ALT (SGPT) 20 U/L (8-55); AST (SGOT) 20 U/L (5-34); Alkaline Phosphatase 90 U/L (40-110); Anion Gap 16 mmol/L (10-20); BUN (Urea Nitrogen) 15 mg/dL (8.4-25.7); Bilirubin, Total 0.6 mg/dL (0.2-1.2); CK (CPK) 37 U/L (30-200); Calc. Creatinine Clearance 0 mL/min (70-130); Calcium 9.1 mg/dL (7.8-10.44); Carbon Dioxide 24 mmol/L (23-31); Chloride 104 mmol/L (98-107); Glucose 227 mg/dL (83-110); Potassium 4.3 mmol/L (3.5-5.1); Sodium 140 mmol/L (136-145)
--- NOTE | 2020-03-22 13:52 | CT ---
CT Lower Ext Lt W Con History: Pain Comparison: Radiograph prior day. CT January 20, 2020 Findings: Intact intramedullary nail through the femur. The cortical thinning along the subtrochanter ic metastatic focus is worse. Nondisplaced anterior cortical fracture axial images 61-68 without significant displacement. Complete cortical breakthrough anteriorly with numerous small cortical perf orations. Along the posterior cortex adjacent to the gluteal tuberosity is a linear nondisplaced fracture. The left external iliac, common femoral and femoral artery are patent. No definite soft tissue mass i s appreciated. Lytic mass within the left ilium of S1. Impression: 1. Mild enlargement and progressive cortical thinning of the subtrochanteric mass left femur. 2. Nondisplaced anterior cortical fracture through the proximal lytic mass axial images 61-68. 3. Nondisplaced linear fracture without significant displacement near the gluteal tuberosity posterio rly just caudal to the mass axial images 84-89 corresponding to coronal image 72. 4. Left S1 sacral osteolytic metastatic focus measuring 1.8 cm.
[2020-03-22] MEDS ORDERED: Ketorolac Tromethamine 30 MG/ML VIAL ONE (16:04)
[2020-03-22] MEDS ORDERED: Senokot S 8.6-50 MG TAB PO PRN (16:54)
[2020-03-22] MEDS ORDERED: Morphine 2 MG/ML VIAL SLOW IVP PRN (16:59)
[2020-03-22] MEDS ORDERED: Iopamidol-370 76% 500 ML 1 ML ONE (17:57)
--- NOTE | 2020-03-22 18:19 | HP ---
This is an observation admission. CONSULTANTS CALLED: 1. Dr. Lebron Henley, Oncology. 2. Samir Moya, Orthopedics. REASON FOR ADMISSION: Pain management with severe hip pain. HISTORY OF PRESENT ILLNESS: This is a very pleasant 79-year-old male gentleman with past medical history of diabetes mellitus, benign essential hypertension, metastatic renal cancer, has been brought to the emergency room at [facility] with recent history of left femur surgery with open reduction and internal fixation secondary to metastatic bone lesions for severe pelvic pain and body aches that the patient was unable to tolerate at home with oral pain medications. The patient was further evaluated and given IV pain therapy in the ER and subsequently has been admitted to the Hospitalist Services by the emergency room physician, Dr. Guerrier. I have reviewed with the patient's , advised about pain management, long-term poor prognosis secondary to metastatic disease, which is recurrent in nature secondary to renal cell carcinoma, as discussed prior with their primary oncologist, who agrees to the same. He is being admitted to the Hospitalist Services for IV pain management, IV hydration. Extensive discussion in regard to the patient's prognosis was made with the , who agrees to the current management plan of pain management and palliative hospice care therapy after further review. No other current complaints of chest pain, fever, rigors, chills, nausea, vomiting, diaphoresis, blurring of vision, tingling, numbness, burning micturition, constipation, claudication, anxiety, depression, hematuria, hematochezia, cough, expectoration, syncope, seizures, PND, or orthopnea at this point of time. PAST MEDICAL HISTORY: 1. Benign essential hypertension. 2. Diabetes mellitus, type 2. 3. Metastatic renal cell carcinoma with left femur metastasis and pelvic metastasis, status post recent open reduction and internal fixation. SOCIAL HISTORY: The patient denies tobacco, alcohol, or recreational drug abuse. FAMILY HISTORY: Strong family history of hypertension. ALLERGIES: PENICILLIN. MEDICATIONS: At home; 1. Glipizide 10 mg b.i.d. 2. Hydrocortisone 15 mg in a.m. and 10 mg in p.m. PAST SURGICAL HISTORY: Rotator cuff repair, right knee replacement, gallbladder surgery, left total knee replacement, recent open reduction and internal fixation for fractured metastatic disease. SOCIAL HISTORY: The patient denies tobacco, alcohol, or recreational drug abuse. REVIEW OF SYSTEMS: Except as documented, all systems reviewed and negative. PHYSICAL EXAMINATION: GENERAL: This is an 79-year-old male gentleman, who is unable to walk and in severe pain which is 10/10 in severity when present, requiring IV pain medications, not resolving with oral home medications. VITAL SIGNS: Blood pressure of 150/68 mmHg, respiratory rate of 18 per minute, saturation of on 2 L of oxygen. Has an airway, which is clear. HEENT: Atraumatic and normocephalic. NECK: Supple. No bruit. No lymphadenopathy. No JVD. CVS: S1 and S2. No abnormal rhythms or murmurs. CHEST: Bilateral air entry present. No rhonchi. No wheeze. ABDOMEN: Soft, nontender. Bowel sounds are present. No organomegaly. EXTREMITIES: No cyanosis, no edema. No pallor. No icterus. NEUROLOGIC: The patient is alert, oriented, has significant motor deficits secondary to pain. No sensory deficits for now. HEME: No ecchymosis or petechiae. PSYCH: No depression. Normal mood. DIAGNOSTICS: WBCs 8.6, hemoglobin 14.8, hematocrit 42.4, platelets of 129. Sodium 140, potassium 4.3, chloride 104, carbon dioxide 24, BUN 15, creatinine 1.37, calcium 9.1, AST 20, ALT 20, albumin 4.0. ASSESSMENT: 1. Severe pain, not responding to oral pain medications at home with CT evidence showing mild enlargement and progressive cortical thickening with subtrochanteric mass left femur along with nondisplaced anterior cortical fracture, Nondisplaced linear fracture without significant displacement near the gluteal tuberosity posteriorly, just caudal to the mass axial image, left S1 sacral osteolytic metastatic focus lesion of 1.8 cm. 2. Renal cell carcinoma with significant metastasis and poor prognosis as reported by the patient's primary oncologist, Dr. Henley. 3. Benign essential hypertension. 4. Diabetes mellitus, type 2. 5. Hyperlipidemia. 6. Acquired hypothyroidism. PLAN: Discussed in detail of the diagnoses, treatment plan, and followup with the patient as well as the patient's . Advised the patient's in regard to transitioning to palliative care hospice at some point of time after eventual discussion with Orthopedics as well as Oncology Services. At this point in time, the patient has advanced directives which include a DNR and DNI. Advised the patient's prognosis is very poor. DVT prophylaxis with mechanical SCDs and GI prophylaxis with Pepcid. The patient as well as the patient's had been extensively educated in regard to current prognosis and long-term outcome. Advance directives are DNR and DNI. The patient's MPOA is his . Discharge planning will depend on transitioning the patient to either inpatient hospice or home hospice in the next 24 hours with Case Management. Job ID: [id number] MTDD
[2020-03-22] MEDS: Hydrocortisone Sod Succ/PF 100 mg/2 ml Vial IVP SCH (19:59)
[2020-03-22] MEDS ORDERED: HumaLOG 300 UNITS/3 ML VIAL SC PRN ×2 (20:01)
[2020-03-22] MEDS ORDERED: Dextrose 5% in Water 1,000 ML IV PRN (20:01)
[2020-03-22] MEDS ORDERED: Dextrose 50% Abboject 50 ML SYRINGE SLOW IVP PRN (20:01)
[2020-03-22] MEDS ORDERED: Atorvastatin Calcium 20 MG TAB PO SCH (21:00)
[2020-03-22 22:13] VITALS: BMI 30.4
[2020-03-23] MEDS: Hydrocortisone Sod Succ/PF 100 mg/2 ml Vial IVP SCH ×2 (00:59→05:44)
[2020-03-23] MEDS ORDERED: hydrALAZINE 20 MG/ML VIAL SLOW IVP SCH (03:15)
[2020-03-23] MEDS ORDERED: Levothyroxine Sodium 125 MCG TAB PO SCH (06:00)
[2020-03-23] MEDS ORDERED: HYDROcodone/Acetaminophen 5/325 mg Tablet PO PRN (07:55)
[2020-03-23] MEDS ORDERED: GUAIFENESIN SF SOLN 200 MG/10 ML UDCUP PO PRN (07:55)
[2020-03-23] MEDS ORDERED: Calcium Carbonate 500 MG ChewTAB PO PRN (07:55)
[2020-03-23] MEDS ORDERED: Ondansetron PF 4 MG/2 ML Vial IVP PRN (07:55)
[2020-03-23] MEDS ORDERED: Zolpidem Tartrate 5 MG TAB PO PRN (07:55)
[2020-03-23] MEDS ORDERED: hydrALAZINE 20 MG/ML VIAL SLOW IVP PRN (07:55)
[2020-03-23] MEDS ORDERED: Sodium Chloride 0.65% Nasal 44 ML BOT EA NARE PRN (07:55)
[2020-03-23] MEDS ORDERED: diphenhydrAMINE 50 MG/ML VIAL IVP PRN (07:55)
[2020-03-23] MEDS ORDERED: Benzonatate 100 MG CAP PO PRN (07:55)
[2020-03-23] MEDS ORDERED: Bisacodyl 5 MG TAB PO PRN (07:55)
[2020-03-23] MEDS ORDERED: Loperamide HCl 2 MG CAP PO PRN (07:55)
[2020-03-23] MEDS ORDERED: Ondansetron ODT 4 MG TAB PO PRN (07:55)
[2020-03-23] MEDS ORDERED: Bisacodyl 10 MG SUPP PR PRN (07:55)
[2020-03-23] MEDS ORDERED: Loratadine 10 MG TAB PO PRN (07:55)
[2020-03-23] MEDS ORDERED: Cepastat Lozenges 1 LOZ PO PRN (07:55)
[2020-03-23] MEDS ORDERED: traZODone HCl 50 MG TAB PO PRN (07:56)
[2020-03-23] MEDS ORDERED: Non-Formulary Item 1 EACH (Oxycodone Hcl/Acetaminophen [Percocet] 10 MG/325 MG Tablet) PO PRN (07:56)
[2020-03-23] MEDS ORDERED: Morphine 2 MG/ML VIAL SLOW IVP PRN (07:59)
[2020-03-23] MEDS ORDERED: oxyCODONE/Acetaminophen 5 mg/325 mg Tablet PO PRN (08:19)
[2020-03-23] MEDS ORDERED: HYDROCORTISONE 5 MG PO SCH ×2 (09:00→21:00)
[2020-03-23] MEDS ORDERED: Amlodipine 10 MG TAB PO SCH (09:00)
[2020-03-23] MEDS ORDERED: Hydrocortisone 10 mg Tablet PO SCH ×2 (09:00→21:00)
[2020-03-23] MEDS ORDERED: Insulin Glargine 17 UNITS in Pre-Filled Syringe 1 EACH SC SCH (09:00)
[2020-03-23] MEDS ORDERED: Enoxaparin Sodium 40 MG/0.4 ML SYRINGE SC SCH (09:00)
--- NOTE | 2020-03-23 09:17 | MRI ---
MRI Pelvis WO Con History: Pain. Evaluate for metastasis Comparison: Lumbar spine MRI same day Findings: Intraosseous hemangioma of the L5 vertebral body. Metastatic focus within the left S1 sacra l ala measures 2 cm. Metastatic focus within the left iliac wing seen on the coronal images measures 2.2 cm likely with a component of cortical breakthrough. Poorly delineated left subtrochanteric mass as well as the mentioned fractures which are nondisplaced . The obturator rings are without metastatic disease. Impression: 1. Osteolytic masses within the left sacral ala at S1 as well as within the left ilium posteriorly se en on the coronal images as described. 2. Intraosseous hemangioma of L5.
--- NOTE | 2020-03-23 10:00 | MRI ---
MRI LUMBAR SPINE WITHOUT CONTRAST: INDICATION: Low back pain. Left hip pain. FINDINGS: The lumbar vertebrae maintain normal height and alignment. There is a 2.0 cm lesion in the mid L5 ve rtebral body which exhibits low T1 signal and high T2 signal. The findings are felt most consistent with an atypical hemangioma with atypical low T1 signal. When comparison is made to a CT through the lumbar spine of 11/29/2019, the lesion was present at that time and the CT findings appear benign. The vertebral bodies otherwise exhibit normal signal. There are mild degenerative changes with mild spurring from the lumbar vertebrae. There is loss of disk space at L3-4 and there are degenerative d isk signal changes at all levels. L1-2: No significant disk bulge or protrusion. Mild facet arthrosis. No significant central canal or foraminal stenosis. L2-3: Minimal disk bulge. Mild facet arthrosis. No significant central canal or foraminal stenosis . L3-4: Degenerative disk changes with loss of disk space as noted above. Annular fissure and small b road-based protrusion flattens the anterior thecal sac. Facet and ligamentous hypertrophy. Mild c entral canal stenosis. Mild bilateral foraminal encroachment due to the diffuse disk bulge and facet hypertrophy. L4-5: Evidence of a small annular fissure with associated diffuse disk bulge abutting and mildly fla ttening the thecal sac. Facet hypertrophy. No significant central canal or foraminal stenosis. L5-S1: Evidence of small annular fissure with mild broad-based disk bulge abutting the thecal sac. Moderate facet hypertrophy. Mild left foraminal encroachment due to disk-osteophyte complex. No sig nificant central canal stenosis. IMPRESSION: 1. Evidence of atypical hemangioma in the L5 vertebra as described. 2. Degenerative disk changes with mild disk bulges at L3-4, L4-5, and L5-S1 as described above. POS: AMAYA
--- NOTE | 2020-03-23 11:35 | PDOC.HOSPP ---
- Subjective Encounter Date: 03/23/20 Encounter Time: 07:15 Subjective: Patient seen and examined bedside today, patient's family member present bedside, patient does not have any pain while at bed but with ambulation his pain gets worse, based on my discussion with the family member, they prefer him to go home with palliative care, possibly home health to support them, - Objective Vital Signs & Weight: Vital Signs (12 hours) Temp Pulse Resp BP BP Pulse Ox 03/23/20 09:57 97.9 F 18 95 03/23/20 09:33 86 168/77 H 03/23/20 08:00 97.9 F 86 18 168/77 H 95 03/23/20 04:57 97.5 F L 78 18 96 03/23/20 03:35 66 16 169/75 H 95 03/23/20 03:25 70 189/84 H 93 L 03/23/20 03:22 70 189/84 H 03/23/20 00:09 97.6 F 70 18 171/79 H 97 Weight Weight 183 lb 2 oz I&O: 03/22/20 03/23/20 03/24/20 06:59 06:59 06:59 Intake Total 200.5 Output Total 1050 Balance -849.5 Result Diagrams: 03/22/20 11:54 03/22/20 11:54 Additional Labs: Accuchecks 03/23/20 03/22/20 05:22 21:20 POC Glucose 178 H 205 H Radiology Reviewed by me: Yes Hospitalist ROS - Review of Systems Constitutional: reports: weakness. denies: fever, chills, sweats, malaise, other Respiratory: denies: cough, dry, shortness of breath, hemoptysis, SOB with excertion, pleuritic pain, sputum, wheezing, other Cardiovascular: denies: chest pain, palpitations, orthopnea, paroxysmal noc. dyspnea, edema, light headedness, other Genitourinary: denies: dysuria, frequency, incontinence, hematuria, retention, other Musculoskeletal: reports: back pain, leg pain. denies: neck pain, shoulder pain, arm pain, hand pain, foot pain, other - Medication Medications: Active Medications Generic Name Dose Route Start Last Admin Trade Name Freq PRN Reason Stop Dose Admin Hydrocodone Bitart/Acetaminophen 1 tab 03/23/20 07:55 03/23/20 10:47 Hydrocodone/Acetaminophen 5/325 Mg Tablet PO 1 tab Q4H PRN Administration Moderate Pain (4-6) Amlodipine Besylate 10 mg 03/23/20 09:00 03/23/20 09:33 Amlodipine 10 Mg Tab PO 10 mg QAM HAKAN Administration Atorvastatin Calcium 20 mg 03/22/20 21:00 03/22/20 20:00 Atorvastatin Calcium 20 Mg Tab PO 20 mg HS HAKAN Administration Enoxaparin Sodium 40 mg 03/23/20 09:00 03/23/20 09:34 Enoxaparin Sodium 40 Mg/0.4 Ml Syringe SC 40 mg 0900 HAKAN Administration Hydrocortisone 15 mg 03/23/20 09:00 03/23/20 09:38 Hydrocortisone 10 Mg Tablet PO 15 mg QAM HAKAN Administration Insulin Glargine 17 units/ 0.17 mls @ 0 mls/hr 03/23/20 09:00 03/23/20 09:35 Miscellaneous Medication SC 0.17 mls DAILY HAKAN Administration Insulin Human Lispro 0 units 03/22/20 20:01 03/23/20 05:46 Humalog 300 Units/3 Ml Vial SC 2 unit .MILD SLIDING SCALE PRN Administration Mild Correctional Scale Insulin Human Lispro 0 units 03/22/20 20:01 03/22/20 21:32 Humalog 300 Units/3 Ml Vial SC 2 unit .BEDTIME SLIDING SC PRN Administration Bedtime Correctional Scale Levothyroxine Sodium 125 mcg 03/23/20 06:00 03/23/20 05:45 Levothyroxine Sodium 125 Mcg Tab PO 125 mcg 0600 HAKAN Administration Pantoprazole Sodium 40 mg 03/23/20 09:00 03/23/20 09:34 Pantoprazole 40 Mg Tab PO 40 mg DAILY HAKAN Administration Sodium Chloride 10 ml 03/23/20 09:00 03/23/20 09:39 Flush - Normal Saline 10 Ml Syringe IVF 10 ml Q12HR HAKAN Administration Hospitalist Exam Vitals: Vital Signs (12 hours) Temp Pulse Resp BP BP Pulse Ox 03/23/20 09:57 97.9 F 18 95 03/23/20 09:33 86 168/77 H 03/23/20 08:00 97.9 F 86 18 168/77 H 95 03/23/20 04:57 97.5 F L 78 18 96 03/23/20 03:35 66 16 169/75 H 95 03/23/20 03:25 70 189/84 H 93 L 03/23/20 03:22 70 189/84 H 03/23/20 00:09 97.6 F 70 18 171/79 H 97 Weight Weight 183 lb 2 oz General Appearance: NAD, awake alert Eye: PERRL, anicteric sclera ENT: normocephalic atraumatic, no oropharyngeal lesions Neck: supple, symmetric, no JVD, no thyromegaly Heart: RRR, no murmur, no gallops, no rubs Respiratory: no wheezes, no rales, no ronchi Gastrointestinal: soft, non-tender, non-distended, normal bowel sounds Extremities: no cyanosis, no clubbing Skin: normal turgor, no lesions Neurological: no new deficit Musculoskeletal: normal tone, normal strength Psychiatric: normal affect, normal behavior Hosp A/P (1) Intractable pain Code(s): R52 - PAIN, UNSPECIFIED Status: Acute (2) Hemangioma of bone Code(s): D18.09 - HEMANGIOMA OF OTHER SITES Status: Chronic (3) Diabetes mellitus type 2 in nonobese Code(s): E11.9 - TYPE 2 DIABETES MELLITUS WITHOUT COMPLICATIONS Status: Chronic (4) Adrenal insufficiency Code(s): E27.40 - UNSPECIFIED ADRENOCORTICAL INSUFFICIENCY Status: Chronic (5) Chronic kidney disease, stage 3 Code(s): N18.30 - CHRONIC KIDNEY DISEASE, STAGE 3 UNSPECIFIED Status: Chronic (6) Hypertension Code(s): I10 - ESSENTIAL (PRIMARY) HYPERTENSION Status: Chronic (7) Hypothyroidism Code(s): E03.9 - HYPOTHYROIDISM, UNSPECIFIED Status: Chronic Qualifiers: Hypothyroidism type: unspecified Qualified Code(s): E03.9 - Hypothyroidism, unspecified - Plan old records reviewed/req, plan discussed w/ family, PT/OT Consults: Palliative Care Patient had a pelvic MRI which showing osteolytic mass in left sacral ala at S1 level, and patient also found with intraosseous hemangioma of L5, MRI lumbar spine also showed similar finding, at this point family member prefers him to go home with the palliative care and they prefer him to continue immunotherapy provided by oncology, oncology opinion pending today, orthostatic evaluation also pending, will start physical therapy and Occupational Therapy to see if patient is able to ambulate, patient will need pain management after discharge, at this point they are not inclined toward hospice, I am not certain who will manage and who will continue to provide him pain medication after discharge, otherwise patient is medically stable, if family agrees and comfortable then after oncology and palliative care evaluation patient will be able to go home with the palliative care at that point will continue all his medication
--- NOTE | 2020-03-23 11:42 | PDOC.DS.DS ---
Provider Date of Admission: 03/22/20 16:23 Admitting Provider: Quinn Morin MD Primary Care Physician: NO PCP PROVIDER Course Hospital Course: 79-year-old male who has past medical history of hypertension, diabetes type 2, metastatic renal cancer, who was brought to emergency room with severe pelvic pain and body ache, he was not able to ambulate, his pain was not controlled, In the emergency room patient had a CT lower extremity which showed mild enlargement and progressive cortical thinning of several trochanteric mass of left femur, nondisplaced anterior cortical fracture through the proximal gliotic mass, nondisplaced linear fracture near the gluteal tuberosity, L5-S1 osteolytic lesion also found, subsequently patient had pelvic MRI which showed osteolytic mass in left sacral ala at S1 and intraosseous hemangioma at L5, MRI lumbar spine also showed similar finding, We had discussion with the family member about goal of care, palliative care consulted, while in hospital we have reconciled his home medication, we started PT OT, at this point patient is inclined towards palliative care at home, they are also interested in continuing immunotherapy if possible, at this point discharge process in progress, will consider discharging him home with palliative care versus hospice based on family preference. Resuscitation Status: 03/22/20 16:54 Resuscitation Status Routine Resuscitation Status: DNAR: NO Resuscitation Discussed with: AND SHE CONFIRMED [facility]VANCE DIRECTIVES Lab Results: 03/22/20 11:54 03/22/20 11:54 Abnormal Lab Results - Last 48 hrs 03/22/20 11:54: Creatinine 1.37 H 03/22/20 11:54: Plt Count 129 L, Neutrophils % 75.2 H, Lymphocytes % 12.4 L, Lymphocytes # 1.1 L, Monocytes # 0.7 H Vitals: Vital Signs (12 hours) Temp Pulse Resp BP BP Pulse Ox 03/23/20 09:57 97.9 F 18 95 03/23/20 09:33 86 168/77 H 03/23/20 08:00 97.9 F 86 18 168/77 H 95 03/23/20 04:57 97.5 F L 78 18 96 03/23/20 03:35 66 16 169/75 H 95 03/23/20 03:25 70 189/84 H 93 L 03/23/20 03:22 70 189/84 H 03/23/20 00:09 97.6 F 70 18 171/79 H 97 Weight Weight 183 lb 2 oz Physical Exam: The patient was seen and examined on the day of discharge. General Appearance: NAD, awake alert Eye: PERRL, anicteric sclera ENT: normocephalic atraumatic, no oropharyngeal lesions Neck: supple, symmetric, no JVD, no thyromegaly Respiratory: no wheezes, no rales, no ronchi Cardiovascular: RRR, no murmur, no gallops, no rubs Gastrointestinal: soft, non-tender, non-distended, normal bowel sounds Extremities: no clubbing, no edema Skin: normal turgor, no lesions Neurological: no new deficit Musculoskeletal: normal tone, normal strength PSYCH: normal affect, normal behavior Problem (1) Intractable pain Code(s): R52 - PAIN, UNSPECIFIED Status: Acute (2) Hemangioma of bone Code(s): D18.09 - HEMANGIOMA OF OTHER SITES Status: Chronic (3) Diabetes mellitus type 2 in nonobese Code(s): E11.9 - TYPE 2 DIABETES MELLITUS WITHOUT COMPLICATIONS Status: Chronic (4) Adrenal insufficiency Code(s): E27.40 - UNSPECIFIED ADRENOCORTICAL INSUFFICIENCY Status: Chronic (5) Chronic kidney disease, stage 3 Code(s): N18.30 - CHRONIC KIDNEY DISEASE, STAGE 3 UNSPECIFIED Status: Chronic (6) Hypertension Code(s): I10 - ESSENTIAL (PRIMARY) HYPERTENSION Status: Chronic (7) Hypothyroidism Code(s): E03.9 - HYPOTHYROIDISM, UNSPECIFIED Status: Chronic Qualifiers: Hypothyroidism type: unspecified Qualified Code(s): E03.9 - Hypothyroidism, unspecified Plan Home Medications: Medication Instructions Recorded Confirmed Type Amlodipine [Norvasc] 10 mg PO QAM 04/27/13 03/22/20 History Atorvastatin Calcium [Lipitor] 20 mg PO 04/27/13 03/22/20 History Glucosamine HCl 1,500 mg PO 04/27/13 03/22/20 History Levothyroxine Sodium [Synthroid] 125 mcg PO QAM 04/27/13 03/22/20 History glipiZIDE [Glucotrol] 10 mg PO BID- 04/27/13 03/22/20 History Hydrocortisone 10 mg PO HS 01/30/20 03/22/20 History Hydrocortisone 15 mg PO QAM 01/30/20 03/22/20 History Insulin Glargine [Lantus Vial] 17 units SC DAILY 01/30/20 03/22/20 History traZODone HCl [Trazodone HCl] 50 mg PO HS PRN 01/30/20 03/22/20 History oxyCODONE HCl/Acetaminophen 1 tablet PO Q6HR PRN 03/22/20 03/22/20 History [Percocet] Allergies: Penicillins Allergy (Verified 03/22/20 22:13) Activity:: Activity as Tolerated Nourishment:: Diabetic Diet Therapies:: Not Applicable Equipment/Supplies:: Not Applicable IV Therapy:: Not Applicable Referrals: PROVIDER,NO PCP [Primary Care Provider] - Disposition: HOSPICE-HOME Quality CORE MEASURES:: N/A
[2020-03-23 12:07] VITALS: BP 163/69; TEMP 98.1
[2020-03-23 12:50] LABS: SARS-CoV-2 PCR by NAA Not Detected (NotDetected)
--- NOTE | 2020-03-23 15:11 | PDOC.FMACP ---
Advance Care Planning - Problem (1) Palliative care encounter Status: Acute Code(s): Z51.5 - ENCOUNTER FOR PALLIATIVE CARE (2) Intractable pain Status: Acute Code(s): R52 - PAIN, UNSPECIFIED (3) Hemangioma of bone Status: Chronic Code(s): D18.09 - HEMANGIOMA OF OTHER SITES (4) Chronic kidney disease, stage 3 Status: Chronic Code(s): N18.30 - CHRONIC KIDNEY DISEASE, STAGE 3 UNSPECIFIED - Note Participants: patient, family, palliative care Summary: Palliative care addressed Advanced Care Planning. The diagnosis, prognosis and goals of care were discussed. Appropriate forms and documentation to accomplish the goals of care were discussed. All questions were answered. Confirmed DNAR status Immediate Goal is better Pain control for optimizing quality of life. Family initiated conversation in relation to continuation of therapy if able verses hospice. MPOA and Directives reported to be completed and in home setting. Requested copy for hospital Time Spent (mins): 20
--- NOTE | 2020-03-23 16:01 | CON ---
DATE OF CONSULTATION: REASON FOR CONSULTATION: Renal cell carcinoma. HISTORY OF PRESENT ILLNESS: Mr. Finnegan is a pleasant 79-year-old gentleman who has stage IV renal cell carcinoma. He recently progressed on Opdivo and was started on Inlyta and Keytruda. He has taken Inlyta for approximately 1 week. He also had radiation to his left femur, completed in late February. He presented with intractable pain. He was given morphine in the ER and improved. He is ready for discharge today. PAST MEDICAL HISTORY: 1. Stage IV renal cell carcinoma with bone mets. 2. Diabetes mellitus, 2. 3. Hypertension. 4. Hyperlipidemia. 5. Anxiety and depression. 6. Chronic kidney disease. 7. Thyroid disease. 8. Osteoarthritis. PAST SURGICAL HISTORY: 1. Femur fracture repair. 2. Renal biopsy. ALLERGIES: PENICILLIN. HOME MEDICATIONS: 1. Amlodipine. 2. Glipizide. 3. Glucosamine. 4. Hydralazine. 5. Lantus. 6. Levothyroxine. 7. Lipitor. 8. Percocet. 9. Trazodone. 10. Trulicity. 11. Vitamin B. FAMILY HISTORY: Mother had GI cancer. Father had lung cancer. SOCIAL HISTORY: , 5 children. Lives with spouse. A 40 pack-year history of smoking. REVIEW OF SYSTEMS: Positive for pain, but otherwise negative. PHYSICAL EXAMINATION: VITAL SIGNS: Temperature 98.1, pulse is 78, respiratory rate 20, blood pressure is 163/69, and he is 96% on room air. GENERAL: A well-developed, well-nourished male, in no acute distress. HEENT: Normocephalic and atraumatic. Pupils are equal and reactive to light. NECK: Supple. CV: Regular rate and rhythm. LUNGS: Unlabored. ABDOMEN: Obese. Bowel sounds positive. NEUROLOGIC: Intact. PERTINENT LABORATORY DATA AND X-RAYS: WBCs are 8.6, hemoglobin 14.8, hematocrit 42.4, platelet count is 129,000, 75% neutrophils, and 12% lymphocytes. Sodium 140, potassium 4.3, chloride 104, CO2 is 24, , calcium 9.1, bilirubin 0.6, AST is 20, ALT is 20, alkaline phosphatase is 90, serum total protein is 7, albumin 4, and globulin 3. COVID PCR negative. ASSESSMENT: 1. Stage IV renal cell carcinoma with bone mets. 2. Intractable pain. DISCUSSION: The patient's pain has improved with morphine. He will be changed to MS Contin. This medication will be sent to his pharmacy, which he will start tomorrow. We will also send a referral for [facility]. They can follow up in his home next week. This was discussed with the patient's spouse and daughter, all are in agreement. The patient will be discharged home and follow up with Dr. Henley on Thursday as scheduled. He will continue his Inlyta and start Keytruda next week. Thank you for the consult. Job ID: [id number]
[2020-03-23 18:55] LABS: SARS-CoV-2 IgG Ab Non-Reactive (NonReactive); SARS-CoV-2 IgG Index 0.06 S/CO (< 1.40)
== END 2020-03-23 15:33 | disposition home or self-care (01) ==
LOC: ERS 11:36 → ONC 16:23
PROVIDERS: ADMIT Student in an Organized Health Care Education/Training Program; ATTEND Internal Medicine
DX: M84.552A Pathological fracture in neoplastic disease, left femur, initial encounter for fracture (principal); C64.9 Malignant neoplasm of unspecified kidney, except renal pelvis; C79.51 Secondary malignant neoplasm of bone; M89.58 Osteolysis, other site; D18.09 Hemangioma of other sites; I12.9 Hypertensive chronic kidney disease with stage 1 through stage 4 chronic kidney disease, or unspecified chronic kidney disease; N18.30 Chronic kidney disease, stage 3 unspecified; E11.9 Type 2 diabetes mellitus without complications; I10 Essential (primary) hypertension; E78.5 Hyperlipidemia, unspecified; E03.9 Hypothyroidism, unspecified; E27.40 Unspecified adrenocortical insufficiency; Z79.4 Long term (current) use of insulin; Z79.899 Other long term (current) drug therapy; Z88.0 Allergy status to penicillin; Z66 Do not resuscitate; Z20.822 Contact with and (suspected) exposure to COVID-19
CPT/HCPCS: 72148; 72195; 73701; 80053; 82550; 82962 ×2; 85025; 86769; 93971; 96374; 96375 ×3; 96376 ×2; 97116; 97139; 99285; G0378 ×3; U0003; U0005; 36415; 36416; 87635; J0360; J1650; J1720; J1815; J1885; J2270; J2405; Q9967